=== PATIENT | male | born 1950 | race Caucasian/White ===

== ENCOUNTER 2021-08-22 10:19 | Emergency (ER) | payer MEDICARE ==
[2021-08-22 10:51] LABS: BILIRUBIN NEGATIVE (NEGATIVE); BLOOD NEGATIVE Ery/uL (NEGATIVE); CLARITY CLEAR (CLEAR); COLOR YELLOW (YELLOW); GLUCOSE (U) NORMAL (NORMAL); LEUKOCYTES NEGATIVE Leu/uL (NEGATIVE); NITRITE NEGATIVE (NEGATIVE); PROTEIN 2+ mg/dL (NEGATIVE); SPECIFIC GRAVITY >=1.030 (1.001-1.030); UROBILINOGEN 0.2 mg/dL (0.2-1.0); pH 5.5 (5.0-9.0)
[2021-08-22 10:52] LABS: BASOPHIL 0.4 % (0-2); EOSINOPHIL 1.6 % (0-7); HCT 39.3 % (42.0-52.0); HGB 12.8 g/dl (13.2-18.0); LYMPHOCYTE 11.5 % (15-48); MCH 30.8 pg (25.0-31.0); MCHC 32.6 g/dL (32.0-36.0); MCV 94.5 fL (78.0-100.0); MONOCYTE 8.6 % (0-12); MPV 13.2 fL (6.0-9.5); NEUTROPHIL 77.4 % (41-80); NRBC 0; PLT 151 K/uL (150-400); RBC 4.16 M/uL (4.70-6.00); RDW 13.2 % (11.5-14.0); WBC 10.2 K/uL (4.0-10.5)
[2021-08-22 11:01] LABS: MUCOUS TRACE
[2021-08-22 11:02] LABS: ALBUMIN 3.5 g/dL (3.4-5.0); BILIRUBIN - TOTAL 0.4 mg/dL (0.2-1.0); CREATININE 1.72 mg/dL (0.67-1.17); GLOBULIN (CALCULATION) 3.3 g/dL; POTASSIUM 3.5 mmol/L (3.5-5.1); TOTAL PROTEIN 6.8 g/dL (6.4-8.2)
== END 2021-08-22 13:49 | disposition home or self-care (01) ==
LOC: FER 10:19
PROVIDERS: Internal Medicine
DX: E11.649 Type 2 diabetes mellitus with hypoglycemia without coma (principal); T38.3X5A Adverse effect of insulin and oral hypoglycemic [antidiabetic] drugs, initial encounter; I10 Essential (primary) hypertension; Z79.82 Long term (current) use of aspirin; Z79.4 Long term (current) use of insulin; Z79.02 Long term (current) use of antithrombotics/antiplatelets; Z79.899 Other long term (current) drug therapy
CPT/HCPCS: 36415; 80053; 81001; 85025; 99284